=== PATIENT | male | born 2000 | race Caucasian/White ===

== ENCOUNTER → 2024-02-23 13:49 | Outpatient (REF) | payer OTHER, SELFPAY | LOC: HWRAD 13:49 | PROVIDERS: ATTENDING PHYSICIAN Internal Medicine Hematology & Oncology; FAMILY PHYSICIAN Internal Medicine | DX: R59.0 Localized enlarged lymph nodes (principal) | CPT/HCPCS: 76705 ==

== ENCOUNTER 2024-04-19 23:21 | Emergency (ER) | payer OTHER, SELFPAY ==
[2024-04-19 23:39] VITALS: BP 126/76
[2024-04-19 23:51] VITALS: BMI 20.2
--- NOTE | 2024-04-19 23:53 | ED.GENMED ---
History of Present Illness
General
Chief Complaint: Ear Problem
Source: patient
Exam Limitations: none
Time Seen by Provider: 04/19/24 23:45
History of Present Illness
History of Present Illness:
This is a 24 year old male that comes in with c/o right ear pain. States that he has had a sore throat for the past 4 days. Then 1 hour ago he started with right ear pain. State that it was severe and that he felt nauseated due to the pain. Denies
any fever, chills, abd pain, vomiting, diarrhea, headache, dizziness.
Past History
Past History
ED Past Medical History: Asthma
ED Past Surgical History: None
Social History
Tobacco: Non-smoker
Alcohol: None
Drug: None
Personal: Single
Living: with family
Review of Systems
Review of Systems
All Other Systems: ROS reviewed and negative except as documented in HPI and ROS
Constitutional: Reports no symptoms; Denies fever or chills
EENT: Reports sore throat and other (Right ear pain)
Respiratory: Reports no symptoms; Denies cough or trouble breathing
Cardiac: Reports no symptoms; Denies chest pain
ABD/GI: Reports nausea; Denies abdominal pain, vomiting or diarrhea
: Reports no symptoms
Musculoskeletal: Reports no symptoms
Skin: Reports no symptoms
Neurological: Reports no symptoms; Denies dizzy or headache
Psychiatric: Reports no symptoms
Phy Exam
General Physical Exam
General Presentation: no apparent distress
General age: appears stated age
General Skin: warm and dry
General Habitus: normal
General Mental: alert
General Hydration: appears well hydrated
ENT Exam
ENT Exam: neck supple and other (Pharynx slightly red, negative for any exudate. Right TM erythemic. )
Eye Exam
Eye Exam: EOMI
Cardiovascular Exam
Cardiovascular Exam: regular rate/rhythm, no edema, no murmur and normal peripheral pulses
Pulmonary Exam
Pulmonary Exam: lungs clear, no respiratory distress, no rales, chest non tender, no crackles, no rhonchi, no wheezing and no cough
Musculoskeletal Exam
Musculoskeletal Exam: full ROM and no edema
Skin Exam
Skin Exam: normal color, warm/dry, no rash and no petechia
Psychiatric Exam
Psychiatric Exam: normal mood/affect
Course
Orders/Labs/Results
Orders:
Orders
04/19/24 23:53
Rapid Strep Group A Urgent
MAHAMED Source: Throat/Pharynx
Specimen Description:
Date Specimen was Collected: 04/19/24
Time Specimen was Collected: 23:55
Ibuprofen [Motrin] 600 mg PO NOW STA
04/20/24 00:32
Acetaminophen [Tylenol] 1,000 mg PO NOW STA
Rapid strep is negative.
Vital Signs
Initial and Last Documented VS:
Initial Vital Signs
Temp Pulse Resp BP Pulse Ox
98.3 F 80 14 126/76 99
04/19/24 23:39 04/19/24 23:39 04/19/24 23:39 04/19/24 23:39 04/19/24 23:39
Last Documented Vital Signs
Temp Pulse Resp BP Pulse Ox
98.3 F 80 14 126/76 99
04/19/24 23:39 04/19/24 23:39 04/19/24 23:39 04/19/24 23:39 04/19/24 23:39
MDM/Problems Addressed
Differential Diagnosis Includes:
Strep throat. Otitis media
MDM/Problems Addressed:
This is a 24 year old male that comes in with c/o right ear pain. State that this started about 1 hour ago. States that he has had a sore throat for the past 4 days.
Will get rapid strep. Explained that the right ear looks infected. Will place on antibiotics and medicate for pain.
Back into see patient. Explained that his rapid strep is negative. Will start on antibiotic for his right eat infection. Patient to follow up with the family doctor. Patient can use Tylenol and Ibuprofen for pain.
Chronic conditions affecting care:
NA
Acute Exacerbation and/or Progression of Chronic Illness:
NA
*Pulse Oximetry
Patient hypoxic: no
*EKG
Interpreted by ED Provider?: NA
Rate: EKG- N/A
*Grain Loader Interpretation
Rate: Grain Loader- N/A
*Critical Care Note
Total Time (30-74mins, 75-104mins- exclusive of procedures): Not Applicable
ED Attending Note
-
Portions of this chart may have been created with voice recognition software.� Occasional wrong word or��sound alike� substitutions may have occurred due to the inherent limitations of voice recognition software.
Discharge Plan
Departure
Patient Disposition: Home (Routine Discharge)
Date of Disposition: 04/20/24
Time of Disposition: 00:44
Patient with high blood pressure during this ER visit?: No
Condition: Good
Covid-19: Not Applicable
Discharge Problem:
Otitis media of right ear
Instructions: Ear Infections in Adults (DC)
Prescriptions:
New
amoxicillin-pot clavulanate 875-125 mg tablet
1 tab PO BID Qty: 19 0RF
Referrals:
Randall Longoria MD [Family Provider] - As needed
Activity Restrictions/Additional Instructions:
As discussed, your rapid step is negative. You have a right ear infection. You have been start on an antibiotic and given your first dose here. A prescription has been sent to your Pharmacy. Please increase your water intake to 8-8oz glasses daily.
Follow up with the family doctor as needed. You may take Tylenol 1000mg every 6 hours as needed and alternate with Ibuprofen 600mg every 6 hours with food. IF YOU HAVE ANY OTHER CONCERNS PLEASE RETURN TO THE EMERGENCY ROOM.
Interventions
Interventions:
*Risk Screen - Suicide Last Done: 04/20/24 00:11
*General Assessment Last Done: 04/20/24 00:05
*Neglect/Abuse Screening Last Done: 04/19/24 23:52
*ED COVID-19 Vaccine History Last Done: 04/20/24 00:05
Discharge Date and Time
Print Language: IRANIAN
[2024-04-20] MEDS: MOTRIN 600 MG PO
[2024-04-20] MEDS: TYLENOL 1000 MG PO (00:40)
[2024-04-20 00:42] VITALS: BP 122/65
[2024-04-20] MEDS: AUGMENTIN 875 MG/125 MG 1 TABLET PO (00:48)
== END 2024-04-20 01:00 | disposition home or self-care (01) ==
LOC: EMR 23:21
PROVIDERS: EMERGENCY PHYSICIAN Student in an Organized Health Care Education/Training Program; FAMILY PHYSICIAN Internal Medicine
DX: H66.91 Otitis media, unspecified, right ear (principal)
CPT/HCPCS: 99283; 87070; 87147; 87880